=== PATIENT | male | born 1950 | race Caucasian/White ===

== ENCOUNTER 2023-04-23 21:38 | Inpatient (IN) | payer MEDICARE, OTHER ==
[2023-04-23] MEDS ORDERED: Ondansetron PF 4 MG/2 ML Vial IVP PRN (23:48)
[2023-04-23] MEDS ORDERED: Acetaminophen 325 MG TAB PO PRN (23:48)
[2023-04-24 01:21] LABS: Bacteria/HPF None Seen HPF (None Seen); Bilirubin Negative (Negative); Blood, Urine Negative (Negative); CAUTI Indications for Culture Dysuria,urgency,freq; Clarity Clear (Clear); Glucose, Urine (Dipstick) Normal (Negative); Ketone, Urine Negative (Negative); Leukocyte Negative Leu/uL (Negative); Mucous/LPF 1+ LPF (<2+); Nitrite Negative (Negative); Protein, Urine (Dipstick) Negative (Neg-Trace); RBC/HPF 0-3 HPF (0-3); Specific Gravity, Urine 1.026 (1.002-1.036); Squamous Epithelial None Seen HPF (0-3); WBC/HPF 0-3 HPF (0-3); pH, Urine 5.5 (5.0-9.0)
[2023-04-24 01:24] LABS: Calcium Oxalate Crystals 3+ HPF (None Seen)
[2023-04-24 01:27] LABS: Urine Culture Reflex No No
[2023-04-24 02:14] VITALS: BMI 28.3
[2023-04-24 04:45] LABS: #Eosinphils 0.2 thou/uL (0.0-0.7); #Monocytes 0.5 thou/uL (0.11-0.59); #Neutrophils 3.6 thou/uL (1.40-6.50); %Basophils 0.5 % (0.0-1.0); %Eosinophils 2.6 % (0.0-10.0); %Lymphocytes 25.1 % (21.0-51.0); %Monocytes 9.4 % (0.0-10.0); %Neutrophils 62.1 % (42.0-75.0); Hemoglobin 12.3 g/dL (14.0-18.0); Mean Corpuscular HGB CONC 34.2 g/dL (32.0-36.0); Mean Corpuscular Hemoglobin 29.6 pg (27.0-31.0); Mean Corpuscular Volume 86.5 fl (78.0-98.0); Mean Platelet Volume 9.3 fL (7.4-10.4); Platelet Count 157 10x3/uL (130-400); RBC Distribution Width 13.2 % (11.5-14.5); Red Blood Cell (RBC) Count 4.16 mill/uL (4.70-6.10); White Blood Cell (WBC) Count 5.7 10x3/uL (4.8-10.8)
[2023-04-24 05:13] LABS: Anion Gap 12 mmol/L (10-20); BUN (Urea Nitrogen) 17 mg/dL (8.4-25.7); Calc. Creatinine Clearance 86 mL/min (70-130); Calcium 8.8 mg/dL (7.8-10.44); Carbon Dioxide 22 mmol/L (23-31); Chloride 106 mmol/L (98-107); Estimated GFR 74; Glucose 270 mg/dL (83-110); Magnesium 1.8 mg/dL (1.6-2.6); Potassium 3.8 mmol/L (3.5-5.1); Sodium 136 mmol/L (136-145)
[2023-04-24 05:17] LABS: Troponin I 0.058 ng/mL (< 0.028)
[2023-04-24] MEDS ORDERED: Glucagon 1 MG/ML KIT IM PRN (06:10)
[2023-04-24] MEDS ORDERED: Dextrose 5% in Water 1,000 ML IV PRN (06:10)
[2023-04-24] MEDS ORDERED: Dextrose 50% Abboject 50 ML SYRINGE SLOW IVP PRN (06:10)
[2023-04-24] MEDS: HumaLOG 300 UNITS/3 ML VIAL SC PRN (06:32)
[2023-04-24] MEDS ORDERED: Non-Formulary Item 1 EACH (Semaglutide [Ozempic] 0.25 MG/0.2 ML Pen.Injctr) SQ SCH (07:45)
[2023-04-24] MEDS ORDERED: SEMAGLUTIDE 0.25 MG/0.2 ML SC SCH (08:00)
[2023-04-24] MEDS ORDERED: Non-Formulary Item 1 EACH (Valsartan/Hydrochlorothiazide [Valsartan-Hctz 320-25 Mg Tab] 1 PO SCH (09:00)
[2023-04-24] MEDS ORDERED: METFORMIN HCL PO SCH (09:00)
[2023-04-24] MEDS ORDERED: KRILL PO SCH (09:00)
[2023-04-24] MEDS ORDERED: [UNRECOGNIZED DRUG - OTHER] PO SCH (09:00)
[2023-04-24] MEDS ORDERED: DHA PO SCH (09:00)
[2023-04-24] MEDS ORDERED: Enoxaparin 40 MG (0.4 mL) SYRINGE SC SCH (09:00)
[2023-04-24] MEDS ORDERED: KRILL OIL 500 MG PO SCH (09:00)
[2023-04-24] MEDS ORDERED: AST PO SCH (09:00)
[2023-04-24] MEDS ORDERED: EPA PO SCH (09:00)
[2023-04-24] MEDS ORDERED: DAPAGLIFLOZIN PO SCH (09:00)
[2023-04-24] MEDS ORDERED: DONEPEZIL HCL 5 MG PO SCH (09:00)
[2023-04-24] MEDS ORDERED: [UNRECOGNIZED DRUG - OTHER] PO SCH (09:00)
[2023-04-24] MEDS ORDERED: PHOSPHO PO SCH (09:00)
[2023-04-24] MEDS: Valsartan 80 MG TAB PO SCH (09:06)
[2023-04-24] MEDS: Donepezil HCl 5 MG TAB PO SCH (09:07)
[2023-04-24] MEDS: Aspirin 81 mg Enteric Coated Tablet PO SCH (09:07)
[2023-04-24] MEDS: Hydrochlorothiazide 25 MG TAB PO SCH (09:08)
[2023-04-24] MEDS: Levothyroxine Sodium 125 MCG TAB PO SCH (09:08)
[2023-04-24] MEDS: glipiZIDE XL 5 mg ER.TAB PO SCH (09:08)
[2023-04-24] MEDS: Empagliflozin 10 MG TAB PO SCH (09:10)
[2023-04-24] MEDS: metFORMIN XR 500 MG ER.TAB PO SCH (09:12)
[2023-04-24] MEDS ORDERED: Regadenoson 0.4 MG/5 ML SYRINGE ONE (11:52)
[2023-04-24] MEDS: Rosuvastatin 20 MG TAB PO SCH (20:23)
[2023-04-25 05:51] LABS: #Basophils 0.1 thou/uL (0.0-0.2); #Eosinphils 0.2 thou/uL (0.0-0.7); #Monocytes 0.7 thou/uL (0.11-0.59); #Neutrophils 5.1 thou/uL (1.40-6.50); %Basophils 0.7 % (0.0-1.0); %Eosinophils 2.4 % (0.0-10.0); %Lymphocytes 20.5 % (21.0-51.0); %Monocytes 9.6 % (0.0-10.0); %Neutrophils 66.5 % (42.0-75.0); Hematocrit 42.2 % (42.0-52.0); Hemoglobin 14.3 g/dL (14.0-18.0); Mean Corpuscular HGB CONC 33.9 g/dL (32.0-36.0); Mean Corpuscular Hemoglobin 29.5 pg (27.0-31.0); Mean Platelet Volume 9.1 fL (7.4-10.4); Platelet Count 189 10x3/uL (130-400); RBC Distribution Width 13.1 % (11.5-14.5); Red Blood Cell (RBC) Count 4.85 mill/uL (4.70-6.10); White Blood Cell (WBC) Count 7.6 10x3/uL (4.8-10.8)
[2023-04-25 06:19] LABS: Anion Gap 13 mmol/L (10-20); BUN (Urea Nitrogen) 16 mg/dL (8.4-25.7); Calc. Creatinine Clearance 79 mL/min (70-130); Calcium 9.5 mg/dL (7.8-10.44); Carbon Dioxide 22 mmol/L (23-31); Chloride 105 mmol/L (98-107); Estimated GFR 67; Glucose 158 mg/dL (83-110); Magnesium 1.9 mg/dL (1.6-2.6); Potassium 4.2 mmol/L (3.5-5.1); Sodium 136 mmol/L (136-145)
[2023-04-25] MEDS ORDERED: Heparin 10,000 UNITS/ 10 ML VIAL ONE (12:51)
[2023-04-25] MEDS ORDERED: Isoproterenol 0.2 MG/1 ML AMP ONE (12:52)
[2023-04-25] MEDS ORDERED: Lidocaine 1% PF 5 ML VIAL ONE (14:09)
[2023-04-25] MEDS ORDERED: PHENYLEPHRINE-NS 100 MCG/ML 10 ML SYRINGE ONE (14:09)
[2023-04-25] MEDS ORDERED: PROPOFOL 200 MG/20 ML VIAL ONE (14:09)
[2023-04-25] MEDS ORDERED: SUCCINYLCHOLINE/SOD CL,ISO/PF 200 MG/10 ML SYRINGE FS ONE (14:09)
[2023-04-25] MEDS ORDERED: Vasopressin 20 UNITS/ML VIAL ONE (14:36)
[2023-04-25] MEDS ORDERED: Ondansetron PF 4 MG/2 ML Vial ONE (14:36)
[2023-04-25] MEDS ORDERED: Morphine Sulfate 2 MG/ML SYRINGE SLOW IVP PRN (15:16)
[2023-04-25] MEDS ORDERED: Ondansetron HCl/PF 4 MG/2 ML Vial IVP PRN (15:16)
[2023-04-25] MEDS ORDERED: Meperidine HCl/PF 25 MG/ML VIAL SLOW IVP PRN (15:16)
[2023-04-25] MEDS ORDERED: Promethazine HCl 25 MG/ML VIAL IM PRN (15:16)
[2023-04-25] MEDS: HumaLOG 300 UNITS/3 ML VIAL SC PRN (21:16)
[2023-04-26 04:53] LABS: #Basophils 0.1 thou/uL (0.0-0.2); #Eosinphils 0.1 thou/uL (0.0-0.7); #Neutrophils 5.5 thou/uL (1.40-6.50); %Basophils 0.7 % (0.0-1.0); %Eosinophils 1.5 % (0.0-10.0); %Lymphocytes 16.8 % (21.0-51.0); %Monocytes 12.7 % (0.0-10.0); %Neutrophils 67.9 % (42.0-75.0); Hematocrit 41.2 % (42.0-52.0); Hemoglobin 14.1 g/dL (14.0-18.0); Mean Corpuscular HGB CONC 34.2 g/dL (32.0-36.0); Mean Corpuscular Hemoglobin 29.4 pg (27.0-31.0); Platelet Count 187 10x3/uL (130-400); RBC Distribution Width 13.2 % (11.5-14.5); Red Blood Cell (RBC) Count 4.79 mill/uL (4.70-6.10)
[2023-04-26 05:27] LABS: Anion Gap 13 mmol/L (10-20); BUN (Urea Nitrogen) 18 mg/dL (8.4-25.7); Calc. Creatinine Clearance 84 mL/min (70-130); Calcium 9.2 mg/dL (7.8-10.44); Carbon Dioxide 26 mmol/L (23-31); Chloride 104 mmol/L (98-107); Estimated GFR 71; Glucose 118 mg/dL (83-110); Magnesium 1.9 mg/dL (1.6-2.6); Potassium 3.8 mmol/L (3.5-5.1); Sodium 139 mmol/L (136-145)
[2023-04-26 11:52] VITALS: BP 122/75; TEMP 97.5
== END 2023-04-26 13:40 | disposition home or self-care (01) | DRG 274 ==
LOC: 2NO 21:38 → OBSVTOIN 04-24 15:09
PROVIDERS: ADMIT Internal Medicine; ATTEND Emergency Medicine
PROC: 0JH602Z Insertion of Monitoring Device into Chest Subcutaneous Tissue and Fascia, Open Approach (ICD-10-PCS; principal; 2023-04-25)
PROC: 4A023FZ Measurement of Cardiac Rhythm, Percutaneous Approach (ICD-10-PCS; 2023-04-25)
PROC: 3E033XZ Introduction of Vasopressor into Peripheral Vein, Percutaneous Approach (ICD-10-PCS; 2023-04-25)
DX: I47.29 Other ventricular tachycardia (principal); I10 Essential (primary) hypertension; E78.5 Hyperlipidemia, unspecified; I25.10 Atherosclerotic heart disease of native coronary artery without angina pectoris; Z79.899 Other long term (current) drug therapy; Z79.82 Long term (current) use of aspirin; Z88.1 Allergy status to other antibiotic agents; Z79.890 Hormone replacement therapy; Z95.1 Presence of aortocoronary bypass graft; Z87.891 Personal history of nicotine dependence
CPT/HCPCS: 33285; 36415; 36416; 70450; 71045; 78452; 80048; 80053; 81001; 83690; 83735; 84484; 85025; 93005; 93017; 93306; 93613; 93620; 96372; A9502; C1764; C1769; C1894; G0378; J1644; J1650; J1815; J2405; J2704; J2785

== ENCOUNTER 2023-05-04 16:37 | Observation (INO) | payer MEDICARE ==
[2023-05-04 17:18] LABS: #Basophils 0.1 thou/uL (0.0-0.2); #Eosinphils 0.1 thou/uL (0.0-0.7); #Monocytes 0.8 thou/uL (0.11-0.59); #Neutrophils 8.5 thou/uL (1.40-6.50); %Basophils 0.5 % (0.0-1.0); %Eosinophils 0.6 % (0.0-10.0); %Lymphocytes 8.9 % (21.0-51.0); %Monocytes 7.3 % (0.0-10.0); %Neutrophils 82.2 % (42.0-75.0); Hemoglobin 13.4 g/dL (14.0-18.0); Mean Corpuscular HGB CONC 34.4 g/dL (32.0-36.0); Mean Corpuscular Hemoglobin 29.6 pg (27.0-31.0); Mean Corpuscular Volume 86.3 fl (78.0-98.0); Mean Platelet Volume 9.1 fL (7.4-10.4); Platelet Count 188 10x3/uL (130-400); RBC Distribution Width 12.9 % (11.5-14.5); Red Blood Cell (RBC) Count 4.52 mill/uL (4.70-6.10); White Blood Cell (WBC) Count 10.3 10x3/uL (4.8-10.8)
[2023-05-04 17:35] LABS: ALT (SGPT) 39 U/L (8-55); AST (SGOT) 28 U/L (5-34); Albumin 4.2 g/dL (3.4-4.8); Alkaline Phosphatase 79 U/L (40-110); Anion Gap 14 mmol/L (10-20); BUN (Urea Nitrogen) 21 mg/dL (8.4-25.7); Bilirubin, Total 0.7 mg/dL (0.2-1.2); Calc. Creatinine Clearance 0 mL/min (70-130); Calcium 9.3 mg/dL (7.8-10.44); Carbon Dioxide 21 mmol/L (23-31); Chloride 108 mmol/L (98-107); Estimated GFR 50; Globulin 2.5 g/dL (2.4-3.5); Glucose 248 mg/dL (83-110); Potassium 4.6 mmol/L (3.5-5.1); Protein, Total 6.7 g/dL (5.8-8.1); Sodium 138 mmol/L (136-145)
[2023-05-04] MEDS ORDERED: Aspirin Chewable 81 MG TAB ONE (17:36)
[2023-05-04] MEDS ORDERED: Metoprolol Tartrate 5 MG (5 mL) VIAL ONE (17:36)
[2023-05-04] MEDS ORDERED: Magnesium 2 GM/50 ML BAG (IN WATER) ONE (17:36)
[2023-05-04 17:44] LABS: Critical Call Chem Troponin I NUR.NRA@1743; Troponin I 0.287 ng/mL (< 0.028)
[2023-05-04] MEDS ORDERED: Acetaminophen 325 MG TAB PO PRN (18:09)
[2023-05-04] MEDS ORDERED: Senokot S 8.6-50 MG TAB PO PRN (18:09)
[2023-05-04] MEDS ORDERED: Calcium Carbonate 500 MG ChewTAB PO PRN (18:09)
[2023-05-04] MEDS ORDERED: Ondansetron PF 4 MG/2 ML Vial IVP PRN (18:09)
[2023-05-04] MEDS ORDERED: Glucagon 1 MG/ML KIT IM PRN (18:16)
[2023-05-04] MEDS ORDERED: HumaLOG 300 UNITS/3 ML VIAL SC PRN ×2 (18:16)
[2023-05-04] MEDS ORDERED: Dextrose 5% in Water 1,000 ML IV PRN (18:16)
[2023-05-04] MEDS ORDERED: Dextrose 50% Abboject 50 ML SYRINGE SLOW IVP PRN (18:16)
[2023-05-04] MEDS ORDERED: Enoxaparin 100 MG (1 mL) SYRINGE ONE (18:57)
[2023-05-04] MEDS: glipiZIDE XL 5 mg ER.TAB PO SCH (21:32)
[2023-05-04] MEDS: Rosuvastatin 20 MG TAB PO SCH (21:32)
[2023-05-04] MEDS: Sodium Chloride 0.9% 1,000 ML IV SCH (21:40)
[2023-05-04 21:52] VITALS: BMI 28.8
[2023-05-04 22:32] LABS: Critical Call Chem Troponin I NUR.TM8 @2231; Troponin I 2.791 ng/mL (< 0.028)
[2023-05-05 01:28] LABS: Critical Call Chem Troponin I NUR.TM8 @0128; Troponin I 3.095 ng/mL (< 0.028)
[2023-05-05 04:21] LABS: #Basophils 0.1 thou/uL (0.0-0.2); #Eosinphils 0.1 thou/uL (0.0-0.7); #Monocytes 0.6 thou/uL (0.11-0.59); #Neutrophils 3.5 thou/uL (1.40-6.50); %Basophils 0.8 % (0.0-1.0); %Lymphocytes 29.5 % (21.0-51.0); %Monocytes 10.2 % (0.0-10.0); %Neutrophils 57.3 % (42.0-75.0); Hematocrit 35.7 % (42.0-52.0); Hemoglobin 12.3 g/dL (14.0-18.0); Mean Corpuscular HGB CONC 34.5 g/dL (32.0-36.0); Mean Corpuscular Hemoglobin 29.4 pg (27.0-31.0); Mean Corpuscular Volume 85.2 fl (78.0-98.0); Mean Platelet Volume 9.3 fL (7.4-10.4); Platelet Count 162 10x3/uL (130-400); RBC Distribution Width 12.9 % (11.5-14.5); Red Blood Cell (RBC) Count 4.19 mill/uL (4.70-6.10); White Blood Cell (WBC) Count 6.1 10x3/uL (4.8-10.8)
[2023-05-05 04:57] LABS: ALT (SGPT) 30 U/L (8-55); AST (SGOT) 26 U/L (5-34); Albumin 3.7 g/dL (3.4-4.8); Alkaline Phosphatase 65 U/L (40-110); Anion Gap 9 mmol/L (10-20); BUN (Urea Nitrogen) 20 mg/dL (8.4-25.7); Bilirubin, Total 0.6 mg/dL (0.2-1.2); Calc. Creatinine Clearance 100 mL/min (70-130); Calcium 8.6 mg/dL (7.8-10.44); Carbon Dioxide 25 mmol/L (23-31); Chloride 110 mmol/L (98-107); Estimated GFR 86; Globulin 2.2 g/dL (2.4-3.5); Glucose 83 mg/dL (83-110); Potassium 3.5 mmol/L (3.5-5.1); Protein, Total 5.9 g/dL (5.8-8.1); Sodium 140 mmol/L (136-145)
[2023-05-05] MEDS: Levothyroxine Sodium 125 MCG TAB PO SCH (05:19)
[2023-05-05] MEDS: Aspirin 81 mg Enteric Coated Tablet PO SCH (09:17)
[2023-05-05] MEDS: dilTIAZem CD 240 MG CAP PO SCH (09:17)
[2023-05-05] MEDS: Potassium Chloride 20 MEQ TAB PO SCH (09:17)
[2023-05-05] MEDS: Enoxaparin 40 MG (0.4 mL) SYRINGE SC SCH (09:18)
[2023-05-05 13:10] VITALS: BP 134/77; TEMP 97.2
== END 2023-05-05 15:20 | disposition home or self-care (01) ==
LOC: SUATTDRO 16:37 → ERS 16:37 → ERHOLD 18:30 → 2SW 20:52
PROVIDERS: ADMIT Internal Medicine; ATTEND Internal Medicine
DX: I47.10 Supraventricular tachycardia, unspecified (principal); I21.4 Non-ST elevation (NSTEMI) myocardial infarction; I25.10 Atherosclerotic heart disease of native coronary artery without angina pectoris; N17.9 Acute kidney failure, unspecified; I10 Essential (primary) hypertension; E11.9 Type 2 diabetes mellitus without complications; E78.5 Hyperlipidemia, unspecified; E03.9 Hypothyroidism, unspecified; Z95.5 Presence of coronary angioplasty implant and graft; Z79.84 Long term (current) use of oral hypoglycemic drugs; Z79.85 Long-term (current) use of injectable non-insulin antidiabetic drugs; Z79.890 Hormone replacement therapy; Z79.82 Long term (current) use of aspirin; Z79.899 Other long term (current) drug therapy; Z88.8 Allergy status to other drugs, medicaments and biological substances
CPT/HCPCS: 71045; 80053 ×2; 82962 ×2; 83690; 83880; 84484 ×3; 85025 ×2; 85379; 93005; 94760; 96372; G0378 ×3; 36415; 36416; J1650; J3475; J7050

== ENCOUNTER 2023-06-15 06:49 | Day surgery (SDC) | payer MEDICARE ==
[2023-06-02 17:12] LABS: Hematocrit 40.7 % (38.8-50.0); Hemoglobin 13.7 g/dL (13.5-17.5); Mean Corpuscular HGB CONC 33.7 g/dL (32.0-36.0); Mean Corpuscular Hemoglobin 28.3 pg (27.0-33.0); Mean Corpuscular Volume 84.1 fl (81.2-95.1); Mean Platelet Volume 9.2 fl (7.4-10.4); Platelet Count 208 10x3/uL (150-450); RBC Distribution Width 13.2 % (11.5-14.5); Red Blood Cell (RBC) Count 4.84 10x6/uL (4.32-5.72); White Blood Cell (WBC) Count 6.5 10x3/uL (3.5-10.5)
[2023-06-02 17:29] LABS: Anion Gap 16 mmol/L (10-20); BUN (Urea Nitrogen) 16 mg/dL (8.4-25.7); Calc. Creatinine Clearance 0 mL/min (70-130); Calcium 9.1 mg/dL (7.8-10.44); Carbon Dioxide 22 mmol/L (23-31); Chloride 106 mmol/L (98-107); Estimated GFR 74; Glucose 171 mg/dL (83-110); Potassium 4.2 mmol/L (3.5-5.1); Sodium 140 mmol/L (136-145)
[2023-06-02 17:41] LABS: PTT 27.9 sec (22.0-33.0); Prothrombin Time 10.7 sec (9.5-12.1)
[2023-06-06 09:58] VITALS: BMI 27.9
[2023-06-15] MEDS ORDERED: Propofol 500 MG/50 ML VIAL ONE ×2 (09:39→10:16)
[2023-06-15] MEDS ORDERED: fentaNYL 50 mcg/mL 1 mL Vial ONE (09:46)
[2023-06-15] MEDS ORDERED: Midazolam HCl 2 mg/2 ml Vial ONE (09:47)
[2023-06-15] MEDS ORDERED: Ondansetron PF 4 MG/2 ML Vial ONE (09:55)
[2023-06-15] MEDS ORDERED: PHENYLEPHRINE-NS 100 MCG/ML 10 ML SYRINGE ONE (09:55)
[2023-06-15] MEDS ORDERED: Lidocaine 1% PF 5 ML VIAL ONE (09:55)
== END 2023-06-15 13:17 | disposition home or self-care (01) ==
LOC: SDC 06:49
PROVIDERS: ATTEND Internal Medicine Cardiovascular Disease
PROC: 02583ZZ Destruction of Conduction Mechanism, Percutaneous Approach (ICD-10-PCS; principal; 2023-06-15)
DX: I47.10 Supraventricular tachycardia, unspecified (principal); Z88.1 Allergy status to other antibiotic agents
CPT/HCPCS: 80048; 85027; 85610; 85730; 93005; 93653; C1730; C1760; C1769; C1894 ×3; C2630; J3010; J2250; J2405; J2704